=== PATIENT | female | born 1970 | race African-American/Black ===

== ENCOUNTER 2019-01-09 05:09 | Day surgery (SDC) | payer OTHER ==
[2019-01-02 17:17] VITALS: BMI 25.0
[2019-01-09] MEDS ORDERED: LIDOCAINE HCL/PF 2% SDV 5ML VIAL ONE (07:30)
[2019-01-09] MEDS ORDERED: ROCURONIUM BROMIDE 50 MG/5 ML VIAL ONE ×2 (07:30→09:51)
[2019-01-09] MEDS ORDERED: fentaNYL CITRATE 250 MCG/5 ML VIAL ONE (07:30)
[2019-01-09] MEDS ORDERED: DEXAMETHASONE SOD PHOSPHATE 4 MG/1 ML VIAL ONE (07:30)
[2019-01-09] MEDS ORDERED: MIDAZOLAM HCL 2 MG/2 ML SINGLE DOSE VIAL ONE (07:31)
[2019-01-09] MEDS ORDERED: PROPOFOL 20 ML ONE (07:31)
[2019-01-09] MEDS ORDERED: CEFAZOLIN 2 GM/D5W 2 GM/50 ML ML IVPB ONE (07:32)
[2019-01-09] MEDS ORDERED: PHENAZOPYRIDINE HCL 100 MG TABLET (FP) PO ONE (07:32)
[2019-01-09] MEDS ORDERED: ceFAZolin SODIUM 1 GM VIAL ONE (07:37)
[2019-01-09] MEDS ORDERED: BUPIVACAINE HCL/PF 0.5% (5MG/ML) 10 ML VIAL ONE (07:38)
--- NOTE | 2019-01-09 08:30 | HP ---
History & Physical Update - History History: No Change - Physical Physical: No Change - Assessment Assessment: No Change - Plan Plan: No Change (no change since visit on 01/02/[address] Coker)
[2019-01-09] MEDS ORDERED: ceFAZolin SODIUM 1 GM VIAL IVPB ONE (08:36)
[2019-01-09] MEDS ORDERED: HYDROmorphone HCl 2 MG/ML VIAL ONE ×2 (09:03→10:09)
[2019-01-09] MEDS ORDERED: BUPIVACAINE HCL/PF 0.5% (5MG/ML) 10 ML VIAL IJ ONE ×2 (09:16)
[2019-01-09] MEDS ORDERED: NEOSTIGMINE METHYLSULFATE 0.5 MG/ML - 10 ML MDV ONE (10:37)
[2019-01-09] MEDS ORDERED: GLYCOPYRROLATE 0.2 MG/1 ML VIAL ONE ×2 (10:37→10:38)
[2019-01-09] MEDS ORDERED: diphenhydrAMINE HCL 25 MG CAPSULE (FP) PO PRN (10:53)
[2019-01-09] MEDS ORDERED: ACETAMINOPHEN 325 MG TABLET (FP) PO PRN ×2 (10:53→14:01)
[2019-01-09] MEDS ORDERED: LORazepam 0.5 MG TABLET PO PRN (10:53)
[2019-01-09] MEDS ORDERED: KETOROLAC TROMETHAMINE 30 MG/1 ML VIAL IVPUSH PRN (10:53)
[2019-01-09] MEDS ORDERED: ONDANSETRON 4 MG/2 ML VIAL IVPB PRN (10:53)
--- NOTE | 2019-01-09 11:03 | OP ---
Operative Note - Note: Operative Date: 01/09/19 Pre-Operative Diagnosis: Adenomyosis. Leiomyomatous Uterus. Menorrhagia Operation: Laparoscopic Robotic Hysterectomy. bilateral salpingectomy. enterolysis Post-Operative Diagnosis: Same as Pre-op Surgeon: Carol Coker Data Collection Technician: Zina Garcia Anesthesia: Spinal Estimated Blood Loss (mls): 50 Operative Report Dictated: Yes
[2019-01-09] MEDS ORDERED: LACTATED RINGERS SOLUTION 1,000 ML IV SCH (11:15)
[2019-01-09] MEDS ORDERED: DOCUSATE SODIUM 100 MG CAPSULE (FP) PO PRN (14:01)
[2019-01-09] MEDS ORDERED: IBUPROFEN 800 MG/8 ML IJ IVPB PRN (14:01)
[2019-01-09] MEDS ORDERED: SIMETHICONE 80 MG TAB.CHEW (FP) PO PRN (14:01)
[2019-01-09] MEDS ORDERED: ONDANSETRON 4 MG/2 ML VIAL IVPUSH PRN (14:01)
[2019-01-09] MEDS ORDERED: oxyCODONE HCL 5 MG TABLET PO PRN ×2 (14:01)
[2019-01-09] MEDS ORDERED: BISACODYL 5 MG TABLET.DR (FP) PO PRN (14:01)
--- NOTE | 2019-01-09 14:14 | SURG ---
Surgery Compliance Field Technician Note Compliance Field Technician: Zina Garcia PA-C Date of Service: 01/09/19 Diagnosis: Adenomyosis. Leiomyomatous Uterus. Menorrhagia Procedure: Laparoscopic Robotic Hysterectomy. bilateral salpingectomy. enterolysis I was present for the entirety of the operative procedure. For further detail, please refer to operative report. Visit type - Case Type Case Type: Scheduled - Emergency Emergency Visit: No - New patient This patient is new to me today: Yes Date on this admission: 01/09/19
[2019-01-09 16:32] LABS: HEMATOCRIT 36.5 % (32.4-45.2); HEMOGLOBIN 11.5 GM/dL (10.7-15.3); MCH 27.4 pg (25.7-33.7); MCHC 31.6 g/dl (32.0-36.0); MEAN CELL VOLUME 86.7 fl (80-96); MEAN PLT VOLUME 8.4 fl (7.5-11.1); PLATELET COUNT 217 K/MM3 (134-434); RBC 4.21 M/mm3 (3.60-5.2); RDW 14.8 % (11.6-15.6); WHITE BLOOD COUNT 14.3 K/mm3 (4.0-10.0)
[2019-01-09] MEDS ORDERED: CEFAZOLIN 1 GM/D5W 1 GM/50 ML BAG IVPB SCH (17:00)
[2019-01-09 17:02] LABS: CALCIUM 8.8 mg/dL (8.5-10.1); CREATININE 0.7 mg/dL (0.55-1.3); POTASSIUM 4.3 mmol/L (3.5-5.1)
[2019-01-09] MEDS: CEFAZOLIN 1 GM/D5W 1 GM/50 ML BAG IVPB SCH (17:14)
[2019-01-09] MEDS: BENZOCAINE/MENTH/CETYLPYRD CL 1 EACH LOZENGE MM PRN (22:00)
[2019-01-10] MEDS: BENZOCAINE/MENTH/CETYLPYRD CL 1 EACH LOZENGE MM PRN ×2 (02:06→05:56)
[2019-01-10] MEDS: CEFAZOLIN 1 GM/D5W 1 GM/50 ML BAG IVPB SCH (02:06)
[2019-01-10 07:17] LABS: HEMATOCRIT 32.6 % (32.4-45.2); HEMOGLOBIN 10.5 GM/dL (10.7-15.3); MCH 27.6 pg (25.7-33.7); MCHC 32.2 g/dl (32.0-36.0); MEAN CELL VOLUME 85.6 fl (80-96); MEAN PLT VOLUME 8.5 fl (7.5-11.1); PLATELET COUNT 217 K/MM3 (134-434); RBC 3.81 M/mm3 (3.60-5.2); WHITE BLOOD COUNT 13.2 K/mm3 (4.0-10.0)
[2019-01-10 07:45] LABS: CALCIUM 8.5 mg/dL (8.5-10.1); CREATININE 0.8 mg/dL (0.55-1.3); POTASSIUM 3.8 mmol/L (3.5-5.1)
--- NOTE | 2019-01-10 07:59 | PN ---
Progress Note (short form) - Note Progress Note: surgery POD#1 robotic assisted laparoscopic hysterectomy/BSO patient seen and examined at bedside with no c/o. Patent has been OOB to chair, tolerating her diet and passing flatus. She denies any C/p, SOB, N/V fever or chills. Vital Signs Temp 98.2 F 01/10/19 05:57 Pulse 84 01/10/19 05:57 Resp 20 01/10/19 05:57 BP 123/72 01/10/19 05:57 Pulse Ox 100 01/09/19 13:25 Intake & Output 01/09/19 01/09/19 01/10/19 11:59 23:59 11:59 Intake Total 7584 067 5336 Output Total 300 1450 900 Balance 1600 -600 1400 Intake: IV 0357 561 6818 Lactated Ringers Solution 800 1200 1,000 ml @ 75 mls/hr IV ASDIR CORY Rx#:[id number] IVPB 50 300 Oral 800 Output: Urine 250 1450 900 Zuniga 1250 900 Estimated Blood Loss 50 Other: Voiding Method Indwelling Catheter Indwelling Catheter CBC, BMP 01/10/19 06:00 01/10/19 06:00 PE: A&Ox3, NAD Unlabored resp on RA Abd: slightly distended, soft, with mild ttp throughout appropriate to status. dressings c/d/i with surrounding tissues intact and no evidence of d/c. Problem List - Problems (1) Fibroid uterus Assessment/Plan: POD #1 robotic LELAND/ BSO, doing well 1) regular diet as tolerated 2) OOB ambulate as tolerated 3) encourage IS 4) Abdominal binder PRN comfort. 5) d/c zuniga with TOV 6) d/c home today if voids and tolerated diet. Code(s): D25.9 - LEIOMYOMA OF UTERUS, UNSPECIFIED
[2019-01-10 08:22] VITALS: BP 123/84; PULSE 89; TEMP 99.4
[2019-01-10] MEDS ORDERED: ENOXAPARIN NA (PORCINE) 40 MG/0.4 ML DISP.SYRIN SQ SCH (10:00)
--- NOTE | 2019-01-14 12:25 | OP ---
DATE OF OPERATION: 01/09/2019 PREOPERATIVE DIAGNOSIS: Adenomyosis, leiomyomatous uterus, menorrhagia. OPERATION: Laparoscopic robotic hysterectomy, bilateral salpingectomy, and enterolysis. POSTOPERATIVE DIAGNOSIS: Adenomyosis, leiomyomatous uterus, menorrhagia. SURGEON: Carol Coker MD BROOD STATION MANAGER: WILMA Verdin ANESTHESIA: Spinal. ESTIMATED BLOOD LOSS: 50 mL. DESCRIPTION OF PROCEDURE: The patient was taken to the operating room, placed in the dorsal lithotomy position, prepped and draped in the usual sterile fashion. A time-out was performed in accordance with hospital regulation. A Jerome catheter was inserted into the bladder. A speculum was placed into the vagina. The anterior lip of the cervix was grasped with a single-tooth tenaculum. The cervix was then dilated to accommodate the operative uterine manipulator. Manipulator was then inserted around the cervix and placement was reassured. Attention was then drawn to the umbilicus, where an 8-mm umbilical incision was made. Veress needle was inserted into the cavity. Approximately 3 to 4 L of CO2 was insufflated into the cavity. The Veress needle was then removed, and an 8-mm trocar was then inserted. Laparoscope and camera revealed some omental adhesions attached to the anterior abdominal wall. Two trocars were placed on the left side, one in the upper abdomen. A 5-mm incision was made in the upper abdomen. An AirSeal cannula was then inserted under direct visualization. Also, parallel to the umbilicus, an 8-mm incision was then made and trocar was then inserted into the cavity under direct visualization. The same procedure was repeated on the right side. Two trocars were placed parallel to the umbilical incision. Scalpel was then used to make an 8-mm incision in the abdomen, and 8-mm trocar was then inserted. Two trocars were inserted, both 8 mm apart. The da Shayne robot was then side docked to the patient's arm. The trocars were then inserted onto the da Shayne robot. Placement was then reassured and placed. The vessel sealer was inserted on the left, and Endo Marina and tenaculum were inserted on the right side. Attention was then drawn to the console, where control of the console was done. The tenaculum was then used to elevate the uterus and tilt the uterus over to the right side, where the left tube and utero-ovarian ligament were identified, clamped and cut using the vessel sealer. The uterine arteries were identified, clamped and cut. Vesicouterine section was then entered and the bladder was bluntly dissected out of the operative field. The uterine artery was identified, clamped and cut. Cardinal ligaments identified, clamped and cut down to the level of the cervix. Endo Marina were then used to cut the vagina and uterine manipulator was seen. Endo Marina were then used to extend the incision. The same procedure was repeated on the other side. Tenaculum was then used to elevate the uterus to the left side, and the utero-ovarian ligament was identified, clamped and cut. The fallopian tube on the right was identified, clamped and cut. The vesicouterine section was then entered and the bladder was bluntly dissected out of the operative field. The uterine artery was identified, clamped and cut. Also, the round ligaments identified, clamped and cut. The cardinal ligament was identified, clamped and cut, all using vessel seal, down to the level of the cervix. Endo Marina were then used to cut the vagina away from the cervix. Hemostasis was achieved using coagulation with either the vessel sealer or the Endo Marina. The uterine manipulator was then removed, and the cervix and the uterus were then removed from the vagina. A 2-0 V-Loc suture was then introduced into the abdomen. The QRuso robot was then used to grasp the needle using needle antony, and continuous stitching on the vagina was done until the vagina was closed and secured. Suture was then cut. Needle was then removed through one of the trocars. Hemostasis was achieved. Irrigation was done. Bilateral peristalsis of the ureters was identified. Hemostasis was achieved. Prior to closing the vagina, the rest of the fallopian tubes were coagulated and cut, and removed from the vagina, both the left and the right fallopian tube. Hemostasis was achieved. All pedicles were identified. After hemostasis was achieved and the trocars had been removed, the incisions were then closed using 4-0 Biosyn suture in a subcuticular fashion. All CO2 was removed from the abdomen. Estimated blood loss was 50 mL. Delores [id number]
--- NOTE | 2019-01-14 13:08 | PATH ---
Surgical Pathology Report Patient Name: CATIA HUGHES [facility]. Rec. #: [id number] /Age/Gender: 1970 (Age: 48) / F Account: [id number] Location: AMBULATORY SURG Taken: 01/09/2019 Received: 01/09/2019 Reported: 01/13/2019 Physicians: Carol Coker M.D. Specimen(s) Received A: UTERUS AND CERVIX B: RIGHT FALLOPIAN TUBE C: LEFT FALLOPIAN TUBE D: FIBROID Clinical History Fibroids, menorrhagia Final Diagnosis A. UTERUS AND CERVIX, HYSTERECTOMY: LEIOMYOMATA. SECRETORY TYPE ENDOMETRIUM. CERVIX WITH MILD CHRONIC INFLAMMATION AND SQUAMOUS METAPLASIA. B. RIGHT FALLOPIAN TUBE, SALPINGECTOMY: FALLOPIAN TUBE WITH NO SIGNIFICANT PATHOLOGIC CHANGE. C. LEFT FALLOPIAN TUBE, SALPINGECTOMY: FALLOPIAN TUBE WITH NO SIGNIFICANT PATHOLOGIC CHANGE. D. FIBROID, EXCISION: ONE LEIOMYOMA WITH DEGENERATIVE CHANGE (HYALINIZATION AND CALCIFICATION). Electronically Signed Kedar Douglas M.D. Gross Description A. Received in formalin labeled "uterus and cervix," is a 204 g uterus with an attached cervix. No tubes or ovaries present. The specimen measures 12 cm from superior to inferior, 7 cm from anterior to posterior, and 5 cm from left to right. The serosa is hankins-pink and smooth with focal disruption which measures 2 cm in greatest dimension. The attached cervix measures 4 cm in length and averages 3.4 cm in diameter. The ectocervix is hankins-pink, smooth and glistening. The endocervix is unremarkable. The endometrial cavity measures 6 cm in length and 2 cm from cornu to cornu. The endometrium is hankins-red, smooth, and measures up to 0.3 cm in thickness. The myometrium displays multiple intramural and subserosal nodules, ranging from 0.3cm to 1.5cm in greatest dimension. The cut surface of the nodules is hanknis and rubbery with whorled architecture. No necrosis, discoloration, or hemorrhage present. The remaining myometrium is hankins-pink and measures up to 2.1 cm in thickness. [employer] sections are submitted in 12 cassettes as follows: 1: anterior cervix; 2: Posterior cervix; 3-4: anterior endomyometrium; 5-6: posterior endometrium with nodule; 7-8- intramural and subserosal nodules B. Received in formalin labelled "right fallopian tube" is a 3 cm long by 0.5 cm in diameter portion of tissue consistent with a portion of fallopian tube with a fimbriated end. Grossly no focal lesion identified. Sectioned and billing representative sections submitted in 2 cassettes. 1: Fimbria; 2: [employer] sections C. Received in formalin labelled "left fallopian tube" is a 3 cm long by 0.5 cm in diameter portion of tissue consistent with a portion of fallopian tube with a fimbriated end. Grossly no focal lesion identified. Sectioned and billing representative sections submitted in 2 cassettes. 1: Fimbria; 2: [employer] sections. D. Received in formalin labelled "fibroid" is a nodular lesion measuring 3.5 x 2.5 x 2 cm. The serosal surface is smooth with focal disruption measuring 2 cm in greatest dimension. Serial sections reveal hankins heterogeneous cut surface is with focal white discoloration (calcification). Director Of [employer] Engine [employer] sections submitted in three cassettes. __ PABLO/01/09/2019 stephen/01/09/2019
== END 2019-01-10 11:00 | disposition home or self-care (01) ==
LOC: JASUSAT 05:09 → J3W 13:03 → JASUSAT 01-10 11:00
PROVIDERS: ATTEND Obstetrics & Gynecology
PROC: 0UT7FZZ Resection of Bilateral Fallopian Tubes, Via Natural or Artificial Opening With Percutaneous Endoscopic Assistance (ICD-10-PCS; 2019-01-09)
PROC: 8E0W4CZ Robotic Assisted Procedure of Trunk Region, Percutaneous Endoscopic Approach (ICD-10-PCS; 2019-01-09)
PROC: 0UT9FZZ Resection of Uterus, Via Natural or Artificial Opening With Percutaneous Endoscopic Assistance (ICD-10-PCS; principal; 2019-01-09 08:00)
DX: N80.0 Endometriosis of uterus (principal); D25.9 Leiomyoma of uterus, unspecified; N92.0 Excessive and frequent menstruation with regular cycle
CPT/HCPCS: 58552; S2900; 36415; 80048; 84703; 85027; 86850; 86900; 86901; 88302-TC; 88305-TC; 88307-TC; 94760